=== PATIENT | female | born 1985 | race Caucasian/White ===

== ENCOUNTER → 2021-11-21 | Outpatient (CLI) | payer OTHER ==
[~2021-11-21] MED LIST: BIRTH CONTROL PO; CETI10TA74 PO; FLUO20CA22 PO; LISI20TA18 PO; MONT10TA80 PO; NAPR220C4 PO; NORTRIPTYLINE; OMEP20TA8 PO; SUMATRIPTAN; TIZANIDINE
== END ==
LOC: LAB 08:00
PROVIDERS: ATTEND Otolaryngology
DX: Z01.812 Encounter for preprocedural laboratory examination (principal); U07.1 COVID-19; Z98.890 Other specified postprocedural states
CPT/HCPCS: C9803; U0003

== ENCOUNTER → 2021-12-23 | Day surgery (SDC) | payer OTHER ==
[~2021-12-23] MED LIST changes: +ACETAMINOPHEN 500 MG TABLET PO ONE; +DEXAMETHASONE SOD PHOS 20 MG/5 ML VIAL. ONE; +IPRATRPIUM/ALBUTEROL 0.5/2.5MG 3 ML NEBU. NEB PRN; +IV RINGERS SOLUTION,LACTATED 1,000 ML IV SCH; +KETOROLAC 30 MG/ML VIAL. ONE; +LIDOCAINE 1%/EPI 1:100,000 20 ML VIAL. IJ ONE; +LIDOCAINE 1%/EPI 1:100,000 20 ML VIAL. ONE; +LIDOCAINE 2% PF 5 ML VIAL. ONE; +MIDAZOLAM HCL PF 2 MG/2 ML VIAL. IV ONE; +MIDAZOLAM HCL PF 2 MG/2 ML VIAL. ONE; +ONDANSETRON PF 4 MG/2 ML VIAL. IV PRN; +ONDANSETRON PF 4 MG/2 ML VIAL. ONE; +PROPOFOL 10,000 MCG/ML (20ML) VIAL IV ONE; +ROCURONIUM 50 MG/5 ML VIAL. ONE; +SEVOFLURANE 31 TO 60 MINUTES. IH ONE; +SUCCINYLCHOLINE 200 MG/10 ML VIAL. ONE; +oxyCODONE/APAP 7.5/325 1 TAB TABLET PO ONE
[2021-12-23 08:14] LABS: U PREG PATIENT NEGATIVE (NEG)
[2021-12-23 10:32] VITALS: BP 145/87
--- NOTE | 2021-12-23 11:35 | OP ---
DATE OF SURGERY: 12/23/2021 PREOPERATIVE DIAGNOSIS: Chronic tonsillitis with cryptic debris accumulation. POSTOPERATIVE DIAGNOSIS: Chronic tonsillitis with cryptic debris accumulation. PROCEDURE PERFORMED: Tonsillectomy. INDICATIONS FOR PROCEDURE: Chronic tonsillar infections and chronic tonsil debris collection. ANESTHESIA: General anesthetic. ESTIMATED BLOOD LOSS: Less than 15 mL. DESCRIPTION OF PROCEDURE: The patient was brought to the operating room and placed on the operating table in the supine position. She was given a general anesthetic. When her airway was secured and vital signs were noted, the table was rotated 90 degrees. The mouth was then braced open with a Barber-Juan Carlos mouth gag. Tonsils were found to be small, but at examination, there was a large amount of white tonsillar ____ noted in the left tonsil. The tonsillar pillars were then injected with 1% lidocaine with epinephrine, approximately 2 mL total on both sides, after which, the left tonsil was approached first. It was grasped with a straight Allis and retracted to a medial location. A knife blade was then used to make an incision along the mucosa at the border of the anterior tonsil pillar after which a second Allis was then applied and with the use of Ct dissector, gentle dissection was carried out to separate the tonsillar capsule from the tonsil fossa. As this proceeded when bleeding was encountered, a Coblator was used to control the bleeding. Then, the Coblator was used for dissection and removal of the tonsil. It was accomplished without difficulty and the bleeding was controlled with the Coblation. The right tonsil was then approached in a similar fashion by grasping with an Allis and retracting it to a medial position, creating a shallow incision, then gently dissecting the tonsil from the tonsil fossa using a Ct dissector as needed and the Coblator. When the tonsil was completely removed, the tonsil fossa was then examined and all bleeding was controlled. The nose and the oropharynx were irrigated and suctioned. No active bleeding was occurring. The tongue blade was then relaxed for a short period of time, approximately 30 seconds and then the mouth was reopened and reexamined and no new bleeding had occurred. Then 1% lidocaine with epinephrine was injected into the tonsil fossa to control pain and the procedure was completed. Again, a short observation period was conducted and no bleeding occurred after the second inspection. The patient was then recovered from her anesthesia and taken to recovery room in stable condition. THIEN/JOSEPH DR: Ursula TID: [id number]
--- NOTE | 2021-12-25 18:06 | PATHOLOGY ---
[facility] Accession Number: [id number] . 01 Material submitted: . tonsil - BILATERAL TONSILS. Modifiers: bilateral . 01 Clinical history: . TONSILLECTOMY CHRONIC TONSILLITIS . 02 Diagnosis: [place] tonsil (2), bilateral tonsillectomy: - Chronic tonsillitis. (JPM:yareli; 12/25/2021) QMS 12/25/2021 1518 Local . 02 Electronically signed: . Henry Mcwilliams MD, Pathologist NPI- [id number] . 01 Gross description: . Fixative: Formalin Labeled: Tonsils (bilateral) Specimen received: Two palatine tonsils Dimensions: 1.9 x 1.4 x 0.7 and 2.3 x 1.5 x 0.8 cm Mucosa: Pale kirkpatrick, ragged Cut surface: [place]-kirkpatrick with typical crypts identified . [employer] sections from each tonsil submitted in cassette A1. (CAA; 12/24/2021) QA/QA 12/24/2021 0836 Local . 02 Pathologist provided ICD-10: J35.1 . 02 CPT . 752145 Specimen Comment: A courtesy copy of this report has been sent to [phone] Specimen Comment: Report sent to Performed at: 01 [facility] [address], [place] [id number] MD Asif Olson MD Phone: [phone] Performed at: 02 [facility] [place] [address] [place], [place] [id number] MD Henry Mcwilliams MD Phone: [phone]
== END | disposition home or self-care (01) ==
LOC: SURG 07:47
PROVIDERS: ATTEND Otolaryngology
DX: J35.01 Chronic tonsillitis (principal); Z88.0 Allergy status to penicillin; Z91.041 Radiographic dye allergy status; Z91.010 Allergy to peanuts; Z72.89 Other problems related to lifestyle; Z79.899 Other long term (current) drug therapy
CPT/HCPCS: 42826; 81025; A4657; J0330; J1100; J1885; J2001; J2250; J2405; J2704; J3010; J7120